=== PATIENT | female | born 1975 | race Caucasian/White ===

== ENCOUNTER 2019-05-13 09:04 | Day surgery (SDC) | payer OTHER ==
[2019-05-13] MEDS ORDERED: Metoclopramide 10 MG/2 ML SDV IVPUSH ONE (09:26)
[2019-05-13] MEDS ORDERED: HYDROmorphone 0.5 MG/0.5 ML Syringe IVPUSH ONE ×2 (09:26→11:22)
[2019-05-13] MEDS ORDERED: Dextrose 5%-0.9% NaCl 1,000 ML IV SCH (09:30)
--- NOTE | 2019-05-13 09:30 | EDM.PDOC ---
ED HPI GENERAL MEDICAL PROBLEM - General Chief Complaint: Abdominal Pain Stated Complaint: POSS APPENDICITIS Time Seen by Provider: 05/13/19 09:16 Source of Information: Reports: Patient History Limitations: Reports: No Limitations - History of Present Illness INITIAL COMMENTS - FREE TEXT/NARRATIVE: 43-year-old female presents to the ED with diffuse right lower quadrant abdominal pain. She reports last evening about 1900 hrs. she developed diffuse lower abdominal pain which was more cramping in nature. Pain then has present gradually progressed to the right lower quadrant where it has settled and is much more severe. It is constant without any colicky component. Associated nausea without vomiting. Pain kept her awake a good portion of the night. It hurts to walk it hurts to cough it hurts to get in and out of the vehicle. Also heard to ride in the vehicle with any bumps in the road. She has had no previous abdominal surgery. Last known menstrual period was around the end of April. She has lost her appetite completely Onset Date: 05/12/19 Onset Time: 19:00 Duration: Hour(s):, Getting Worse Location: Reports: Abdomen (Constant pain right lower quadrant of the abdomen over McBurney's point.) Quality: Reports: Ache ( Perhaps may be slight radiation into her back.) Severity: Moderate (Pain is described as a constant deep aching pain. 5 out of 10 at rest) Improves with: Reports: Rest Worsens with: Reports: Other (Worse with movement, coughing, deep breathing, riding in a motor vehicle.) Context: Reports: Other. Denies: Activity, Exercise, Lifting, Sick Contact, Trauma Associated Symptoms: Reports: Loss of Appetite, Malaise, Nausea/Vomiting. 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 [No Known Home Meds] 05/13/19 [History] Social & Family History - Tobacco Use Smoking Status *Q: Never Smoker Second Hand Smoke Exposure: No - Caffeine Use Caffeine Use: Reports: None - Recreational Drug Use Recreational Drug Use: No - Living Situation & Occupation Living situation: Reports: Single Occupation: Employed ED ROS GENERAL - Review of Systems Review Of Systems: See Below Constitutional: Reports: Malaise, Weakness, Decreased Appetite. Denies: Fever, Chills HEENT: Reports: No Symptoms Respiratory: Reports: No Symptoms Cardiovascular: Reports: No Symptoms Endocrine: Reports: Fatigue GI/Abdominal: Reports: Abdominal Pain (See history of present illness currently pain is constant right lower quadrant of the abdomen), Decreased Appetite ( Pleat loss of appetite today. Last meal was at 7:00 last night), Other (Normal bowel movement yesterday). Denies: Constipation : Reports: No Symptoms, Other. Denies: Dysuria, Flank Pain, Frequency Musculoskeletal: Reports: No Symptoms (Is no menstrual period was towards the end of April) Skin: Reports: No Symptoms Neurological: Reports: No Symptoms Psychiatric: Reports: No Symptoms Hematologic/Lymphatic: Reports: No Symptoms Immunologic: Reports: No Symptoms ED EXAM, GI/ABD - Physical Exam Exam: See Below Exam Limited By: No Limitations General Appearance: Alert, WD/WN, Mild Distress, Other (Temperature is 36.3 with a heart rate of 88 respiratory of 20 BP 03/26/1971 O2 sats 96% on room air) Eyes: Bilateral: Normal Appearance Ears: Normal TMs Nose: Normal Inspection Throat/Mouth: Normal Inspection, Normal Lips, Normal Oropharynx Head: Atraumatic, Normocephalic Neck: Normal Inspection, Supple, Non-Tender, Full Range of Motion. No: Lymphadenopathy (L), Lymphadenopathy (R) Respiratory/Chest: No Respiratory Distress, Lungs Clear, Normal Breath Sounds, No Accessory Muscle Use, Chest Non-Tender Cardiovascular: Normal Peripheral Pulses, Regular Rate, Rhythm, No Edema, No Gallop, No Murmur, No Rub GI/Abdominal Exam: Normal Bowel Sounds, Soft, No Organomegaly, No Abnormal Bruit , Guarding, Rebound, Tender (Patient is extremely tender in the right lower quadrant of the abdomen with a peritoneal signs and rebound tenderness. She has a positive Rovsing sign as well.) Neurological: Alert, Oriented, CN II-XII Intact, Normal Cognition Psychiatric: Normal Affect, Normal Mood Skin Exam: Warm, Dry, Intact, Normal Color, No Rash Course - Vital Signs Last Recorded V/S: Last Vital Signs Temp 36.3 C 05/13/19 09:13 Pulse 88 05/13/19 09:13 Resp 20 05/13/19 09:13 BP 124/72 05/13/19 09:13 Pulse Ox - Orders/Labs/Meds Orders: Active Orders 24 hr Category Date Time Status Dextrose 5%-0.9% NaCl [Dextrose 5%-Normal Saline] 1,000 Med 05/13/19 09:30 Active ml IV ASDIRECTED Sodium Chloride 0.9% [Saline Flush] Med 05/13/19 09:53 Active 10 ml FLUSH ONETIME PRN metroNIDAZOLE/Normal Saline [Flagyl 500 MG in NS 100 ML Med 05/13/19 11:00 Active ] 500 mg Premix Bag 1 bag IV ONETIME Medication Orders Dextrose/Sodium Chloride (Dextrose 5%-Normal Saline) 1,000 mls @ 500 mls/hr IV ASDIRECTED LEIGH ANN Last Admin: 05/13/19 09:46 Dose: 500 mls/hr Metronidazole 500 mg/ Premix 100 mls @ 100 mls/hr IV ONETIME ONE Stop: 05/13/19 11:59 Sodium Chloride (Saline Flush) 10 ml FLUSH ONETIME PRN PRN Reason: IV FLUSH Last Admin: 05/13/19 10:39 Dose: 10 ml Labs: Laboratory Tests 05/13/19 05/13/19 05/13/19 Range/Units 09:35 09:35 09:35 WBC 17.67 H (3.98-10.04) K/mm3 RBC 4.43 (3.98-5.22) M/mm3 Hgb 13.5 (11.2-15.7) gm/dl Hct 39.8 (34.1-44.9) % MCV 89.8 (79.4-94.8) fl MCH 30.5 (25.6-32.2) pg MCHC 33.9 (32.2-35.5) g/dl RDW Std Deviation 36.7 (36.4-46.3) fL Plt Count 310 (182-369) K/mm3 MPV 9.3 L (9.4-12.3) fl Neutrophils % (Manual) 81 H (40-60) % Band Neutrophils % 0 (0-10) % Lymphocytes % (Manual) 10 L (20-40) % Atypical Lymphs % 0 % Monocytes % (Manual) 8 (2-10) % Eosinophils % (Manual) 1 (0.7-5.8) % Basophils % (Manual) 0 L (0.1-1.2) Platelet Estimate Adequate RBC Morph Comment Normal PT (9.7-12.0) SECONDS INR APTT 24 (22-31) SECONDS Sodium 137 (136-145) mEq/L Potassium 3.5 (3.5-5.1) mEq/L Chloride 103 (98-107) mEq/L Carbon Dioxide 23 (21-32) mEq/L Anion Gap 14.5 (5-15) BUN 13 (7-18) mg/dL Creatinine 0.6 (0.55-1.02) mg/dL Est Cr Clr Drug Dosing 110.84 mL/min Estimated GFR (MDRD) > 60 (>60) mL/min BUN/Creatinine Ratio 21.7 H (14-18) Glucose 126 H (74-106) mg/dL Calcium 8.7 (8.5-10.1) mg/dL Total Bilirubin 1.1 H (0.2-1.0) mg/dL AST 18 (15-37) U/L ALT 34 (14-59) U/L Alkaline Phosphatase 43 L (46-116) U/L C-Reactive Protein 5.8 H* (<1.0) mg/dL Total Protein 7.3 (6.4-8.2) g/dl Albumin 3.8 (3.4-5.0) g/dl Globulin 3.5 gm/dL Albumin/Globulin Ratio 1.1 (1-2) Lipase 65 L (73-393) U/L HCG, Qual (NEGATIVE) Urine Color (Yellow) Urine Appearance (Clear) Urine pH (5.0-8.0) Ur Specific [place] (1.005-1.030) Urine Protein (Negative) Urine Glucose (UA) (Negative) Urine Ketones (Negative) Urine Occult Blood (Negative) Urine Nitrite (Negative) Urine Bilirubin (Negative) Urine Urobilinogen (0.2-1.0) Ur Leukocyte Esterase (Negative) Urine RBC (0-5) /hpf Urine WBC (0-5) /hpf Ur Squamous Epith Cells (0-5) /hpf Urine Bacteria (FEW) /hpf Urine Mucus (FEW) /hpf 05/13/19 05/13/19 05/13/19 Range/Units 09:35 09:35 10:30 WBC (3.98-10.04) K/mm3 RBC (3.98-5.22) M/mm3 Hgb (11.2-15.7) gm/dl Hct (34.1-44.9) % MCV (79.4-94.8) fl MCH (25.6-32.2) pg MCHC (32.2-35.5) g/dl RDW Std Deviation (36.4-46.3) fL Plt Count (182-369) K/mm3 MPV (9.4-12.3) fl Neutrophils % (Manual) (40-60) % Band Neutrophils % (0-10) % Lymphocytes % (Manual) (20-40) % Atypical Lymphs % % Monocytes % (Manual) (2-10) % Eosinophils % (Manual) (0.7-5.8) % Basophils % (Manual) (0.1-1.2) Platelet Estimate RBC Morph Comment PT 9.8 (9.7-12.0) SECONDS INR 0.93 APTT (22-31) SECONDS Sodium (136-145) mEq/L Potassium (3.5-5.1) mEq/L Chloride (98-107) mEq/L Carbon Dioxide (21-32) mEq/L Anion Gap (5-15) BUN (7-18) mg/dL Creatinine (0.55-1.02) mg/dL Est Cr Clr Drug Dosing mL/min Estimated GFR (MDRD) (>60) mL/min BUN/Creatinine Ratio (14-18) Glucose (74-106) mg/dL Calcium (8.5-10.1) mg/dL Total Bilirubin (0.2-1.0) mg/dL AST (15-37) U/L ALT (14-59) U/L Alkaline Phosphatase (46-116) U/L C-Reactive Protein (<1.0) mg/dL Total Protein (6.4-8.2) g/dl Albumin (3.4-5.0) g/dl Globulin gm/dL Albumin/Globulin Ratio (1-2) Lipase (73-393) U/L HCG, Qual Negative (NEGATIVE) Urine Color Yellow (Yellow) Urine Appearance Clear (Clear) Urine pH 6.0 (5.0-8.0) Ur Specific [place] 1.020 (1.005-1.030) Urine Protein Negative (Negative) Urine Glucose (UA) Negative (Negative) Urine Ketones Negative (Negative) Urine Occult Blood Negative (Negative) Urine Nitrite Negative (Negative) Urine Bilirubin Negative (Negative) Urine Urobilinogen 0.2 (0.2-1.0) Ur Leukocyte Esterase Negative (Negative) Urine RBC 0-5 (0-5) /hpf Urine WBC 0-5 (0-5) /hpf Ur Squamous Epith Cells 0-5 (0-5) /hpf Urine Bacteria Few (FEW) /hpf Urine Mucus Few (FEW) /hpf Meds: Medications Generic Name Dose Route Start Last Admin Trade Name Tony PRN Reason Stop Dose Admin Dextrose/Sodium Chloride 1,000 mls @ 500 mls/hr 05/13/19 09:30 05/13/19 09:46 Dextrose 5%-Normal Saline IV 500 mls/hr ASDIRECTED LEIGH ANN Administration Metronidazole 500 mg/ Premix 100 mls @ 100 mls/hr 05/13/19 11:00 IV 05/13/19 11:59 ONETIME ONE Sodium Chloride 10 ml 05/13/19 09:53 05/13/19 10:39 Saline Flush FLUSH 10 ml ONETIME PRN Administration IV FLUSH Discontinued Medications Generic Name Dose Route Start Last Admin Trade Name Tony PRN Reason Stop Dose Admin Diatrizoate Meglum/Diatrizoate Sod 120 ml 05/13/19 09:53 05/13/19 10:39 Gastrografin 37% PO 05/13/19 09:54 90 ml ONETIME ONE Administration Hydromorphone HCl 0.5 mg 05/13/19 09:26 05/13/19 09:43 Dilaudid IVPUSH 05/13/19 09:27 0.5 mg ONETIME ONE Administration Hydromorphone HCl 0.5 mg 05/13/19 11:22 05/13/19 11:26 Dilaudid IVPUSH 05/13/19 11:23 0.5 mg ONETIME ONE Administration Cefoxitin Sodium 2 gm/ Premix 50 mls @ 100 mls/hr 05/13/19 11:00 05/13/19 11: 22 IV 05/13/19 11:29 100 mls/hr ONETIME ONE Administration Iopamidol 100 ml 05/13/19 09:53 05/13/19 10:39 Isovue-300 (61%) IVPUSH 05/13/19 09:54 100 ml ONETIME ONE Administration Metoclopramide HCl 7.5 mg 05/13/19 09:26 05/13/19 09:41 Reglan IVPUSH 05/13/19 09:27 7.5 mg ONETIME ONE Administration - Radiology Interpretation Free Text/Narrative:: 43-year-old female attends the ED with gradually worsening abdominal pain since last evening about 1900 hrs. She initially had diffuse lower abdominal cramping like pain but overnight it is settled into the right lower quadrant is now constant and worsened by deep breathing moving coughing and/or sneezing. Worsened by getting in the motor vehicle and driving a motor vehicle I suggestive of peritoneal signs. Examination reveals point tenderness over McBurney's point with peritoneal signs and rebound tenderness. She also has a positive Rovsing sign. Clinically she has appendicitis. She has an associated complete loss of appetite with last meal at 7:00 last night. Plan IV D5 normal saline at 500 mils per hour. Given Dilaudid 0.5 mg IV for pain relief with Reglan 7.5 mg IV for nausea relief. She will have CT of the abdomen with oral and IV contrast. Routine labs to be collected including a CRP and a lipase and a urinalysis. - Re-Assessments/Exams Free Text/Narrative Re-Assessment/Exam: 05/13/19 10:20 Hematology reveals an elevated white count at 17.67. Differential is 81% neutrophils with no bands cells reported. Hemoglobin is 13.5 with hematocrit of 39.8. Platelet count 310,000. PTT is 24. Sodium is 137 with a potassium of 3.5 chloride 103 with a bicarb of 23. Anion gap is 14.5 BUN is 13 with a creatinine of 0.6. GFR remains greater than 60. Glucose is 126 with a calcium of 8.7. Liver function is normal C-reactive protein is elevated at 5.8. Total protein is 7.3 with an albumin fraction of 3.8 lipase is normal at 65 05/13/19 10:55 T of the abdomen pelvis has been performed with oral and IV contrast. Above the diaphragm she does have a small hiatal hernia. Cardiac silhouette is normal lung bases are clear. Liver appears homogeneous without any intraductal dilatation. There is no obvious gallstones or calcified gallstones in the gallbladder. Pancreas appears normal. There is scattered amount of stool throughout the colon particularly the transverse colon. In the right lower quadrant there is evidence of a dilated appendix with mild periappendiceal infiltrate with no signs of perforation. There is a small cyst within the left ovary. There is no free fluid in the pelvis. No retroperitoneal adenopathy noted. I will therefore call the on-call surgeon Dr Olmstead to see her in consultation 05/13/19 11:15: I have discussed the findings with the patient and identified that she does not fact have appendicitis. At present she is having a bit more pain. Likely the contrast working its way through her colon. We will give Dilaudid 0.5 mg IV 05/13/19 11:58 Dr Burger has seen her and will be taking her to the OR shortly. Departure - Departure Time of Disposition: 11:59 Disposition: DC/Tfer to [facility] Condition: Fair Clinical Impression: Appendicitis Qualifiers: Appendicitis type: acute appendicitis Acute appendicitis type: with localized peritonitis Appendicitis gangrene presence: without gangrene Appendicitis perforation presence: without perforation Appendicitis abscess presence: without abscess Qualified Code(s): K35.30 - Acute appendicitis with localized peritonitis, without perforation or gangrene - Discharge Information *PRESCRIPTION DRUG MONITORING PROGRAM REVIEWED*: Not Applicable *COPY OF PRESCRIPTION DRUG MONITORING REPORT IN PATIENT REVA: Not Applicable Referrals: Faby Thao LISW [Primary Care Provider] - Forms: ED Department Discharge Sepsis Event Note - Evaluation Sepsis Screening Result: No Definite Risk - Focused Exam Vital Signs: Vital Signs Temp Pulse Resp BP 05/13/19 09:13 36.3 C 88 20 124/72 Date Exam was Performed: 05/13/19 Time Exam was Performed: 11:58 - My Orders Last 24 Hours: My Active Orders 05/13/19 09:30 Dextrose 5%-0.9% NaCl [Dextrose 5%-Normal Saline] 1,000 ml IV ASDIRECTED 05/13/19 09:53 Sodium Chloride 0.9% [Saline Flush] 10 ml FLUSH ONETIME PRN 05/13/19 11:00 metroNIDAZOLE/Normal Saline [Flagyl 500 MG in NS 100 ML] 500 mg Premix Bag 1 bag IV ONETIME - Assessment/Plan Last 24 Hours: My Active Orders 05/13/19 09:30 Dextrose 5%-0.9% NaCl [Dextrose 5%-Normal Saline] 1,000 ml IV ASDIRECTED 05/13/19 09:53 Sodium Chloride 0.9% [Saline Flush] 10 ml FLUSH ONETIME PRN 05/13/19 11:00 metroNIDAZOLE/Normal Saline [Flagyl 500 MG in NS 100 ML] 500 mg Premix Bag 1 bag IV ONETIME
[2019-05-13] MEDS ORDERED: Diatrizoate Meglumine/Diatrizoate Sodium 37% 120 ML Bottle PO ONE (09:53)
[2019-05-13] MEDS ORDERED: Sodium Chloride 0.9% 10 ML Syringe FLUSH PRN (09:53)
[2019-05-13] MEDS ORDERED: Iopamidol 612 MG/ML 100 ML Bottle IVPUSH ONE (09:53)
[2019-05-13] MEDS ORDERED: metroNIDAZOLE/Normal Saline 500 MG in Premix Bag 1 BAG IV ONE (11:00)
[2019-05-13] MEDS ORDERED: cefOXitin 2 GM in Premix Bag 1 BAG IV ONE (11:00)
--- NOTE | 2019-05-13 11:20 | CT ---
CT abdomen and pelvis Technique: Multiple axial sections were obtained from above the dome of the diaphragm inferiorly through the pubic symphysis. Intravenous and oral contrast was utilized. Delayed images were also obtained through the bladder. Comparison: No prior CT abdomen or pelvis exam is available. Findings: Appendix is enlarged with mild surrounding inflammatory change compatible with appendicitis. Other findings: Visualized lung bases show nothing acute. Liver shows mild fatty infiltration without focal abnormality. Spleen appears within normal limits. Pancreas shows no discrete abnormality. Gallbladder contains no calcified gallstones. Adrenal glands show no nodule. Kidneys show symmetric contrast enhancement without hydronephrosis or mass. Aorta shows no aneurysm. No retroperitoneal adenopathy or mesenteric abnormalities are seen. No pelvic mass or adenopathy is seen. Minimal free fluid is noted within the pelvis. Delayed images show contrast within the left ureter and within the bladder. Bone window settings were reviewed. No acute bony abnormality is appreciated. Impression: 1. Findings compatible with appendicitis. 2. No other acute finding is seen. Diagnostic code #5 This report was dictated in MDT
[2019-05-13] MEDS ORDERED: Rocuronium 50 MG/5 ML Vial ONE (12:01)
[2019-05-13] MEDS ORDERED: Propofol 200 MG/20 ML SDV ONE (12:01)
[2019-05-13] MEDS ORDERED: Succinylcholine/Sod PF 100 MG/5 ML SYRINGE IV ONE ×2 (12:02→12:28)
[2019-05-13] MEDS ORDERED: fentaNYL 250 MCG/5 ML SDV ONE (12:02)
[2019-05-13] MEDS ORDERED: Midazolam 1 MG/ML 2 ML SDV ONE (12:02)
[2019-05-13] MEDS ORDERED: Lidocaine 1% 4 ML ONE (12:02)
--- NOTE | 2019-05-13 12:06 | PCM.PREANE ---
Preanesthetic Assessment - Procedure Proposed Procedure: Lap Appy - Anesthesia/Transfusion/Family Hx Anesthesia History: Prior Anesthesia Without Reaction Family History of Anesthesia Reaction: No Transfusion History: No Prior Transfusion(s) - Review of Systems General: Malaise Pulmonary: No Symptoms Cardiovascular: No Symptoms Gastrointestinal: Abdominal Pain (RLQ) Neurological: No Symptoms Other: Reports: None - Physical Assessment NPO Status Date: 05/13/19 NPO Status Time: 19:00 Vital Signs: Last Vital Signs Temp 36.3 C 05/13/19 09:13 Pulse 88 05/13/19 09:13 Resp 20 05/13/19 09:13 BP 124/72 05/13/19 09:13 Pulse Ox Height: 1.68 m Weight: 77.111 kg ASA Class: 2 Mental Status: Alert & Oriented x3 Airway Class: Mallampati = 1 Dentition: Reports: Normal Dentition, [place](s) Thyro-Mental Finger Breadths: 3 Mouth Opening Finger Breadths: 3 ROM/Head Extension: Full Lungs: Clear to Auscultation, Normal Respiratory Effort Cardiovascular: Regular Rate, Regular Rhythm - Lab Values: Laboratory Last Values WBC 17.67 K/mm3 (3.98-10.04) H 05/13/19 09:35 RBC 4.43 M/mm3 (3.98-5.22) 05/13/19 09:35 Hgb 13.5 gm/dl (11.2-15.7) 05/13/19 09:35 Hct 39.8 % (34.1-44.9) 05/13/19 09:35 MCV 89.8 fl (79.4-94.8) 05/13/19 09:35 MCH 30.5 pg (25.6-32.2) 05/13/19 09:35 MCHC 33.9 g/dl (32.2-35.5) 05/13/19 09:35 RDW Std Deviation 36.7 fL (36.4-46.3) 05/13/19 09:35 Plt Count 310 K/mm3 (182-369) 05/13/19 09:35 MPV 9.3 fl (9.4-12.3) L 05/13/19 09:35 Neutrophils % (Manual) 81 % (40-60) H 05/13/19 09:35 Band Neutrophils % 0 % (0-10) 05/13/19 09:35 Lymphocytes % (Manual) 10 % (20-40) L 05/13/19 09:35 Atypical Lymphs % 0 % 05/13/19 09:35 Monocytes % (Manual) 8 % (2-10) 05/13/19 09:35 Eosinophils % (Manual) 1 % (0.7-5.8) 05/13/19 09:35 Basophils % (Manual) 0 (0.1-1.2) L 05/13/19 09:35 Platelet Estimate Adequate 05/13/19 09:35 RBC Morph Comment Normal 05/13/19 09:35 PT 9.8 SECONDS (9.7-12.0) 05/13/19 09:35 INR 0.93 05/13/19 09:35 APTT 24 SECONDS (22-31) 05/13/19 09:35 Sodium 137 mEq/L (136-145) 05/13/19 09:35 Potassium 3.5 mEq/L (3.5-5.1) 05/13/19 09:35 Chloride 103 mEq/L (98-107) 05/13/19 09:35 Carbon Dioxide 23 mEq/L (21-32) 05/13/19 09:35 Anion Gap 14.5 (5-15) 05/13/19 09:35 BUN 13 mg/dL (7-18) 05/13/19 09:35 Creatinine 0.6 mg/dL (0.55-1.02) 05/13/19 09:35 Est Cr Clr Drug Dosing 110.84 mL/min 05/13/19 09:35 Estimated GFR (MDRD) > 60 mL/min (>60) 05/13/19 09:35 BUN/Creatinine Ratio 21.7 (14-18) H 05/13/19 09:35 Glucose 126 mg/dL (74-106) H 05/13/19 09:35 Calcium 8.7 mg/dL (8.5-10.1) 05/13/19 09:35 Total Bilirubin 1.1 mg/dL (0.2-1.0) H 05/13/19 09:35 AST 18 U/L (15-37) 05/13/19 09:35 ALT 34 U/L (14-59) 05/13/19 09:35 Alkaline Phosphatase 43 U/L (46-116) L 05/13/19 09:35 C-Reactive Protein 5.8 mg/dL (<1.0) H* 05/13/19 09:35 Total Protein 7.3 g/dl (6.4-8.2) 05/13/19 09:35 Albumin 3.8 g/dl (3.4-5.0) 05/13/19 09:35 Globulin 3.5 gm/dL 05/13/19 09:35 Albumin/Globulin Ratio 1.1 (1-2) 05/13/19 09:35 Lipase 65 U/L (73-393) L 05/13/19 09:35 HCG, Qual Negative (NEGATIVE) 05/13/19 09:35 Urine Color Yellow (Yellow) 05/13/19 10:30 Urine Appearance Clear (Clear) 05/13/19 10:30 Urine pH 6.0 (5.0-8.0) 05/13/19 10:30 Ur Specific [place] 1.020 (1.005-1.030) 05/13/19 10:30 Urine Protein Negative (Negative) 05/13/19 10:30 Urine Glucose (UA) Negative (Negative) 05/13/19 10:30 Urine Ketones Negative (Negative) 05/13/19 10:30 Urine Occult Blood Negative (Negative) 05/13/19 10:30 Urine Nitrite Negative (Negative) 05/13/19 10:30 Urine Bilirubin Negative (Negative) 05/13/19 10:30 Urine Urobilinogen 0.2 (0.2-1.0) 05/13/19 10:30 Ur Leukocyte Esterase Negative (Negative) 05/13/19 10:30 Urine RBC 0-5 /hpf (0-5) 05/13/19 10:30 Urine WBC 0-5 /hpf (0-5) 05/13/19 10:30 Ur Squamous Epith Cells 0-5 /hpf (0-5) 05/13/19 10:30 Urine Bacteria Few /hpf (FEW) 05/13/19 10:30 Urine Mucus Few /hpf (FEW) 05/13/19 10:30 - Allergies Allergies/Adverse Reactions: Allergies Allergy/AdvReac Type Severity Reaction Status Date / Time No Known Allergies Allergy Verified 05/13/19 09:18 - Blood Blood Available: No Product(s) Available: None - Anesthesia Plan Pre-Op Medication Ordered: None - Acknowledgements Anesthesia Type Planned: General Anesthesia Pt an Appropriate Candidate for the Planned Anesthesia: Yes Alternatives and Risks of Anesthesia Discussed w Pt/Guardian: Yes Pt/Guardian Understands and Agrees with Anesthesia Plan: Yes PreAnesthesia Questionnaire Gastrointestinal History: Reports: GERD - SUBSTANCE USE Smoking Status *Q: Never Smoker Tobacco Use Within Last Twelve Months: No Second Hand Smoke Exposure: No Days Per Week of Alcohol Use: 1 Number of Drinks Per Day: 0 Total Drinks Per Week: 0 Recreational Drug Use History: No - HOME MEDS Home Medications: Home Meds . [No Known Home Meds] 05/13/19 [History] - CURRENT (IN HOUSE) MEDS Current Meds: Current Medications Dextrose/Sodium Chloride (Dextrose 5%-Normal Saline) 1,000 mls @ 500 mls/hr IV ASDIRECTED [facility] Last Admin: 05/13/19 09:46 Dose: 500 mls/hr Sodium Chloride (Saline Flush) 10 ml FLUSH ONETIME PRN PRN Reason: IV FLUSH Last Admin: 05/13/19 10:39 Dose: 10 ml Discontinued Medications Diatrizoate Meglum/Diatrizoate Sod (Gastrografin 37%) 120 ml PO ONETIME ONE Stop: 05/13/19 09:54 Last Admin: 05/13/19 10:39 Dose: 90 ml Hydromorphone HCl (Dilaudid) 0.5 mg IVPUSH ONETIME ONE Stop: 05/13/19 09:27 Last Admin: 05/13/19 09:43 Dose: 0.5 mg Hydromorphone HCl (Dilaudid) 0.5 mg IVPUSH ONETIME ONE Stop: 05/13/19 11:23 Last Admin: 05/13/19 11:26 Dose: 0.5 mg Cefoxitin Sodium 2 gm/ Premix 50 mls @ 100 mls/hr IV ONETIME ONE Stop: 05/13/19 11:29 Last Admin: 05/13/19 11:22 Dose: 100 mls/hr Metronidazole 500 mg/ Premix 100 mls @ 100 mls/hr IV ONETIME ONE Stop: 05/13/19 11:59 Last Admin: 05/13/19 11:58 Dose: 100 mls/hr Iopamidol (Isovue-300 (61%)) 100 ml IVPUSH ONETIME ONE Stop: 05/13/19 09:54 Last Admin: 05/13/19 10:39 Dose: 100 ml Metoclopramide HCl (Reglan) 7.5 mg IVPUSH ONETIME ONE Stop: 05/13/19 09:27 Last Admin: 05/13/19 09:41 Dose: 7.5 mg
[2019-05-13] MEDS ORDERED: Lactated Ringers 1,000 ML ONE (12:40)
[2019-05-13] MEDS: Lidocaine 1% with EPINEPHrine 1:100,000 20 ML MDV ONE ×2 (12:48→12:59)
[2019-05-13] MEDS: Bupivacaine 0.5%/EPINEPHrine 1:200,000 50 ML MDV ONE ×2 (12:48→13:00)
[2019-05-13] MEDS ORDERED: Ondansetron 4 MG/2 ML SDV ONE (12:50)
[2019-05-13] MEDS ORDERED: fentaNYL 100 MCG/2 ML SDV IVPUSH PRN (13:21)
[2019-05-13] MEDS ORDERED: Ondansetron 4 MG/2 ML SDV IVPUSH PRN (13:21)
[2019-05-13] MEDS ORDERED: HYDROmorphone 0.5 MG/0.5 ML Syringe IVPUSH PRN (13:21)
[2019-05-13] MEDS ORDERED: HYDROmorphone 0.5 MG/0.5 ML Syringe ONE (13:26)
--- NOTE | 2019-05-13 13:34 | PCM.HP.2 ---
H&P History of Present Illness - General Date of Service: 05/13/19 Admit Problem/Dx: Admission Diagnosis/Problem Admission Diagnosis/Problem Abdominal pain Source of Information: Patient, Provider History Limitations: Reports: No Limitations - History of Present Illness Initial Comments - Free Text/Narative: The patient is a 43y/o lady who presents with lower abdominal pain. She reports noticing pain last night in the lower abdomen which she thought was like menstrual cramps. She was feeling well up until the start of the pain. She expected the pain to subside, but the pain continued and she also had nausea. She noticed the pain localized into the RLQ and radiated out. She denies any vomiting, diarrhea or constipation. No hematochezia or melena. Upon arrival to the ED, she had laboratory workup with a WBC >10652 and had elevated CRP. She had a CT abdomen/pelvis completed which had findings of acute appendicitis. Right Abdomen Pain Score (Numeric/FACES): 7 - Related Data Allergies/Adverse Reactions: Allergies Allergy/AdvReac Type Severity Reaction Status Date / Time No Known Allergies Allergy Verified 05/13/19 09:18 Home Medications: Home Meds Acetaminophen/HYDROcodone [[place] 325-5 MG] 1 tab PO Q4H PRN 14 Days #20 tablet 05/13/19 [Rx] Docusate Sodium [Colace] 100 mg PO BID 20 Days #40 cap 05/13/19 [Rx] Ibuprofen 600 mg PO Q6HR 20 Days #100 tablet 05/13/19 [Rx] Past Medical History Gastrointestinal History: Reports: GERD - Past Surgical History Female Surgical History: Reports: Tubal Ligation Social & Family History - Family History Family Medical History: Unobtainable (Pt is not able to provide this information because she is not sure.) - Tobacco Use Smoking Status *Q: Never Smoker Second Hand Smoke Exposure: No - Caffeine Use Caffeine Use: Reports: None - Alcohol Use Days Per Week of Alcohol Use: 1 Number of Drinks Per Day: 0 Total Drinks Per Week: 0 - Recreational Drug Use Recreational Drug Use: No - Living Situation & Occupation Living situation: Reports: Single Occupation: Employed H&P Review of Systems - Review of Systems: Review Of Systems: See Below General: Reports: Fever (subjective), Chills HEENT: Reports: No Symptoms Pulmonary: Reports: No Symptoms Cardiovascular: Reports: No Symptoms Gastrointestinal: Reports: Abdominal Pain, Nausea Genitourinary: Reports: No Symptoms Musculoskeletal: Reports: No Symptoms Skin: Reports: No Symptoms Neurological: Reports: No Symptoms Exam - Exam Exam: See Below - Vital Signs Vital Signs: Last Vital Signs Temp 37.3 C 05/13/19 12:14 Pulse 92 05/13/19 12:14 Resp 20 05/13/19 12:14 BP 117/71 05/13/19 12:14 Pulse Ox 97 05/13/19 12:14 Weight: 77.111 kg - Exam Quality Assessment: No: Supplemental Oxygen General: Alert, Oriented HEENT: Conjunctiva Clear, EOMI Neck: Supple Lungs: Normal Respiratory Effort GI/Abdominal Exam: Guarding (in RLQ), Tender, Other (Positive Rovsing's sign) Extremities: No Pedal Edema Peripheral Pulses: 2+: Dorsalis Pedis (L), Dorsalis Pedis (R) Skin: Warm, Dry, Intact Neurological: Cranial Nerves Intact Neuro Extensive - Mental Status: Normal Mood/Affect - Patient Data Lab Results Last 24 hrs: Laboratory Results - last 24 hr 05/13/19 05/13/19 05/13/19 Range/Units 09:35 09:35 09:35 WBC 17.67 H (3.98-10.04) K/mm3 RBC 4.43 (3.98-5.22) M/mm3 Hgb 13.5 (11.2-15.7) gm/dl Hct 39.8 (34.1-44.9) % MCV 89.8 (79.4-94.8) fl MCH 30.5 (25.6-32.2) pg MCHC 33.9 (32.2-35.5) g/dl RDW Std Deviation 36.7 (36.4-46.3) fL Plt Count 310 (182-369) K/mm3 MPV 9.3 L (9.4-12.3) fl Neutrophils % (Manual) 81 H (40-60) % Band Neutrophils % 0 (0-10) % Lymphocytes % (Manual) 10 L (20-40) % Atypical Lymphs % 0 % Monocytes % (Manual) 8 (2-10) % Eosinophils % (Manual) 1 (0.7-5.8) % Basophils % (Manual) 0 L (0.1-1.2) Platelet Estimate Adequate RBC Morph Comment Normal PT (9.7-12.0) SECONDS INR APTT 24 (22-31) SECONDS Sodium 137 (136-145) mEq/L Potassium 3.5 (3.5-5.1) mEq/L Chloride 103 (98-107) mEq/L Carbon Dioxide 23 (21-32) mEq/L Anion Gap 14.5 (5-15) BUN 13 (7-18) mg/dL Creatinine 0.6 (0.55-1.02) mg/dL Est Cr Clr Drug Dosing 110.84 mL/min Estimated GFR (MDRD) > 60 (>60) mL/min BUN/Creatinine Ratio 21.7 H (14-18) Glucose 126 H (74-106) mg/dL Calcium 8.7 (8.5-10.1) mg/dL Total Bilirubin 1.1 H (0.2-1.0) mg/dL AST 18 (15-37) U/L ALT 34 (14-59) U/L Alkaline Phosphatase 43 L (46-116) U/L C-Reactive Protein 5.8 H* (<1.0) mg/dL Total Protein 7.3 (6.4-8.2) g/dl Albumin 3.8 (3.4-5.0) g/dl Globulin 3.5 gm/dL Albumin/Globulin Ratio 1.1 (1-2) Lipase 65 L (73-393) U/L HCG, Qual (NEGATIVE) Urine Color (Yellow) Urine Appearance (Clear) Urine pH (5.0-8.0) Ur Specific [place] (1.005-1.030) Urine Protein (Negative) Urine Glucose (UA) (Negative) Urine Ketones (Negative) Urine Occult Blood (Negative) Urine Nitrite (Negative) Urine Bilirubin (Negative) Urine Urobilinogen (0.2-1.0) Ur Leukocyte Esterase (Negative) Urine RBC (0-5) /hpf Urine WBC (0-5) /hpf Ur Squamous Epith Cells (0-5) /hpf Urine Bacteria (FEW) /hpf Urine Mucus (FEW) /hpf 05/13/19 05/13/19 05/13/19 Range/Units 09:35 09:35 10:30 WBC (3.98-10.04) K/mm3 RBC (3.98-5.22) M/mm3 Hgb (11.2-15.7) gm/dl Hct (34.1-44.9) % MCV (79.4-94.8) fl MCH (25.6-32.2) pg MCHC (32.2-35.5) g/dl RDW Std Deviation (36.4-46.3) fL Plt Count (182-369) K/mm3 MPV (9.4-12.3) fl Neutrophils % (Manual) (40-60) % Band Neutrophils % (0-10) % Lymphocytes % (Manual) (20-40) % Atypical Lymphs % % Monocytes % (Manual) (2-10) % Eosinophils % (Manual) (0.7-5.8) % Basophils % (Manual) (0.1-1.2) Platelet Estimate RBC Morph Comment PT 9.8 (9.7-12.0) SECONDS INR 0.93 APTT (22-31) SECONDS Sodium (136-145) mEq/L Potassium (3.5-5.1) mEq/L Chloride (98-107) mEq/L Carbon Dioxide (21-32) mEq/L Anion Gap (5-15) BUN (7-18) mg/dL Creatinine (0.55-1.02) mg/dL Est Cr Clr Drug Dosing mL/min Estimated GFR (MDRD) (>60) mL/min BUN/Creatinine Ratio (14-18) Glucose (74-106) mg/dL Calcium (8.5-10.1) mg/dL Total Bilirubin (0.2-1.0) mg/dL AST (15-37) U/L ALT (14-59) U/L Alkaline Phosphatase (46-116) U/L C-Reactive Protein (<1.0) mg/dL Total Protein (6.4-8.2) g/dl Albumin (3.4-5.0) g/dl Globulin gm/dL Albumin/Globulin Ratio (1-2) Lipase (73-393) U/L HCG, Qual Negative (NEGATIVE) Urine Color Yellow (Yellow) Urine Appearance Clear (Clear) Urine pH 6.0 (5.0-8.0) Ur Specific [place] 1.020 (1.005-1.030) Urine Protein Negative (Negative) Urine Glucose (UA) Negative (Negative) Urine Ketones Negative (Negative) Urine Occult Blood Negative (Negative) Urine Nitrite Negative (Negative) Urine Bilirubin Negative (Negative) Urine Urobilinogen 0.2 (0.2-1.0) Ur Leukocyte Esterase Negative (Negative) Urine RBC 0-5 (0-5) /hpf Urine WBC 0-5 (0-5) /hpf Ur Squamous Epith Cells 0-5 (0-5) /hpf Urine Bacteria Few (FEW) /hpf Urine Mucus Few (FEW) /hpf Result Diagrams: 05/13/19 09:35 05/13/19 09:35 Sepsis Event Note - Evaluation Sepsis Screening Result: No Definite Risk - Focused Exam Vital Signs: Vital Signs Temp Pulse Resp BP Pulse Ox 05/13/19 12:14 37.3 C 92 20 117/71 97 05/13/19 09:13 36.3 C 88 20 124/72 Date Exam was Performed: 05/13/19 Time Exam was Performed: 13:52 *Q Meaningful Use (ADM) - VTE Risk Assess *Q Each Risk Factor Represents 1 Point: Age 41 - 59 years, Minor Surgery Planned Total Score 1 Point Risk Factors: 2 - Problem List (1) Appendicitis SNOMED Code(s): 05601761 ICD Code: K37 - UNSPECIFIED APPENDICITIS Status: Acute Current Visit: Yes Qualifiers: Appendicitis type: acute appendicitis Acute appendicitis type: with localized peritonitis Appendicitis gangrene presence: without gangrene Appendicitis perforation presence: without perforation Appendicitis abscess presence: without abscess Qualified Code(s): K35.30 - Acute appendicitis with localized peritonitis, without perforation or gangrene Problem List Initiated/Reviewed/Updated: Yes Orders Last 24hrs: Active Orders 24 hr Category Date Time Status Patient Status [ADT] Stat ADT 05/13/19 12:11 Active Communication Order [RC] ASDIRECTED Care 05/13/19 13:21 Active Cooling Warming Measures [RC] ASDIRECTED Care 05/13/19 13:21 Active Oxygen Therapy [RC] ASDIRECTED Care 05/13/19 13:21 Active Pulse Oximetry [RC] ASDIRECTED Care 05/13/19 13:21 Active Vital Signs [RC] Q15M Care 05/13/19 13:21 Active Dextrose 5%-0.9% NaCl [Dextrose 5%-Normal Saline] 1,000 Med 05/13/19 09:30 Active ml IV ASDIRECTED HYDROmorphone [Dilaudid] Med 05/13/19 13:21 Active 0.5 mg IVPUSH Q10M PRN Ondansetron [Zofran] Med 05/13/19 13:21 Active 4 mg IVPUSH ONETIME PRN Sodium Chloride 0.9% [Saline Flush] Med 05/13/19 09:53 Active 10 ml FLUSH ONETIME PRN fentaNYL [Sublimaze] Med 05/13/19 13:21 Active 100 mcg IVPUSH Q5M PRN Schedule Procedure [COMM] Stat Oth 05/13/19 12:10 Ordered Medication Orders Fentanyl (Sublimaze) 100 mcg IVPUSH Q5M PRN PRN Reason: Pain Stop: 05/13/19 15:00 Hydromorphone HCl (Dilaudid) 0.5 mg IVPUSH Q10M PRN PRN Reason: Pain (severe 7-10) Stop: 05/13/19 15:00 Dextrose/Sodium Chloride (Dextrose 5%-Normal Saline) 1,000 mls @ 500 mls/hr IV ASDIRECTED [facility] Last Admin: 05/13/19 09:46 Dose: 500 mls/hr Ondansetron HCl (Zofran) 4 mg IVPUSH ONETIME PRN PRN Reason: Nausea/Vomiting Stop: 05/13/19 18:00 Sodium Chloride (Saline Flush) 10 ml FLUSH ONETIME PRN PRN Reason: IV FLUSH Last Admin: 05/13/19 10:39 Dose: 10 ml Assessment/Plan Comment:: 43-year-old lady with acute appendicitis - Plan for laparoscopic appendectomy, possible open. Discussed risks of infection bleeding and damage to surrounding abdominal structures. A written consent was obtained - Cefuroxime 2 g x 1 and metronidazole 500 mg x 1 -N.p.o. with IV fluids -Will assess need for inpatient stay based on intraoperative findings Nanci Osman MD General Surgery - Mortality Measure Prognosis:: Good
--- NOTE | 2019-05-13 13:38 | PCM.OPNOTE ---
- General Post-Op/Procedure Note Date of Surgery/Procedure: 05/13/19 Operative Procedure(s): laparoscopic appendectomy Findings: acute appendicitis, not ruptured Pre Op Diagnosis: acute appendicitis Post-Op Diagnosis: same Anesthesia Technique: General ET Tube Primary Surgeon: Nanci Osman Anesthesia Provider: Kash Martinez Pathology: appendix Fluid Replacement, Intraop: 1,000 Output, Urine Amount: 0 EBL in mLs: 10 Complications: none apparent Condition: Good
--- NOTE | 2019-05-13 13:44 | PCM.PRNOTE ---
- Free Text/Narrative Note: Operative Report Date of surgery: May 13, 2019 Preoperative diagnosis: acute appendicitis. Postoperative diagnosis: same Procedure performed: laparoscopic appendectomy Surgeon: Dr. Nanci Osman Anesthesia: General Health Actuary: Kash Martinez CRNA Estimated blood loss 10 mL IV fluids: 1000 mL Urine output: 0 mL, patient voided prior to entering the operating room Drains and lines: None Findings: Acute appendicitis, non-ruptured appendix Pathology: Appendix Indications for procedure: The patient is a 43-year-old lady who presented to the emergency department a findings of acute appendicitis. This was confirmed on CT scan. She was consented for laparoscopic appendectomy with possible conversion to open. We discussed risks of infection bleeding and damage to the surrounding intra-abdominal structures. Her written consent was obtained Description of procedure: The patient was taken back to the operating room and placed in supine position on the operating table. SCD boots were in place and functional prior to the start of the procedure. Preoperative antibiotics were administered: Cefuroxime 2 g IV x1 and metronidazole 500 mg IV x1 which were administered within 1 hour of cut time. The patient had successful induction of general anesthesia and was intubated without difficulty. Pt was then prepped and draped in standard surgical fashion and a timeout was performed. We began by making a 15 mm incision in the infraumbilical skin and deepened down to level of the fascia which was then grasped and incised sharply. We entered the peritoneum and then placed stay sutures of 0 Vicryl on the fascial edges. A 12 mm Mart port was then placed into the umbilicus and the balloon was inflated. The abdomen was insufflated to 15 mmHg a 5 mm camera was inserted. There was no evidence of any injury created from entry into the abdomen. A TA P block was performed using mixed 1% lidocaine with epinephrine and 0.5% bupivacaine with epinephrine . We then proceeded to place a 5 mm port under direct visualization in the suprapubic midline and an additional 5mm port in the left lower quadrant. The patient was then positioned in Trendelenburg with right side elevated and we proceeded to visualize and and mobilize the appendix. The omentum was adherent over the appendix with fibrinous adhesions. This was bluntly removed. The appendix was then from the surrounding fibrinous adhesions and elevated. The mesoappendix dissected from the appendix. The appendix was then taken with a tissue staple load. The mesoappendix was then taken with a vascular staple load. The specimen was in place in the Endo Catch bag. We then inspected and suctioned up any blood in the area. Pressure was held on the staple line to aid in hemostasis. There was no active bleeding at the end of this case. There was a small amount of murky fluid in the pelvis, which was blotted out with a Ray-Davina. The abdomen was then desufflated and the umbilical fascia closed with 0 Vicryl sutures and the stay sutures were tied, effectively closing the umbilical port site. The skin was then reapproximated at all port sites using a 4-0 Monocryl subcutaneous stitch and covered with Dermabond surgical glue. The patient tolerated the procedure. She was extubated and transported to the PACU in stable condition. All sponge and needle counts were correct. I was present and scrubbed for the entirety of the procedure. Nanci Osman MD General Surgery
--- NOTE | 2019-05-13 13:47 | PCM.POSTAN ---
POST ANESTHESIA ASSESSMENT - MENTAL STATUS Mental Status: Somnolent - VITAL SIGNS Vital Signs: Last Vital Signs Temp 97.5 F 05/13/19 13:33 Pulse 92 05/13/19 12:14 Resp 15 05/13/19 13:33 BP 95/45 L 05/13/19 13:33 Pulse Ox 96 05/13/19 13:33 - RESPIRATORY Respiratory Status: Respiratory Rate WNL, Airway Patent, O2 Saturation Stable, Supplemental Oxygen - CARDIOVASCULAR CV Status: Pulse Rate WNL, Blood Pressure Stable - GASTROINTESTINAL GI Status: No Symptoms - PAIN Pain Score: 0 - POST OP HYDRATION Hydration Status: Adequate & Stable
--- NOTE | 2019-05-13 14:23 | PCM48HPAN ---
Post Anesthesia Note - EVALUATION WITHIN 48HRS OF ANESTHETIC Vital Signs in Normal Range: Yes Patient Participated in Evaluation: Yes Respiratory Function Stable: Yes Airway Patent: Yes Cardiovascular Function Stable: Yes Hydration Status Stable: Yes Pain Control Satisfactory: Yes Nausea and Vomiting Control Satisfactory: Yes Mental Status Recovered: Yes Vital Signs: Last Vital Signs Temp 36.5 C 05/13/19 14:00 Pulse 77 05/13/19 14:00 Resp 14 05/13/19 14:00 BP 92/77 05/13/19 14:00 Pulse Ox 96 05/13/19 14:04 - COMMENTS/OBSERVATIONS Free Text/Narrative:: no anesthesia complications noted
== END 2019-05-13 15:37 | disposition home or self-care (01) ==
LOC: JD.ED 09:04 → JD.SDS 11:59
PROVIDERS: ATTEND Surgery
DX: K35.33 Acute appendicitis with perforation, localized peritonitis, and gangrene, with abscess (principal)
CPT/HCPCS: 36415; 44970; 74177; 80053; 81001; 83690; 84703; 85007; 85027; 85610; 85730; 86140; 96361; 96365; 96375; 96376; 99285; J0330; J0694; J1170; J2001; J2250; J2370; J2405; J2704; J2710; J2765; J3010; J3490; J7042; J7120; Q9963; Q9967; 00840